=== PATIENT | male | born 1970 | race Caucasian/White ===

== ENCOUNTER → 2021-02-05 | Outpatient (CLI) | payer MEDICARE, OTHER ==
[~2021-02-05] MED LIST: ACYCLOVIR400 MG PO; ALLEGRA ALLERG180 MG PO; AMLODIPINE BESY10 MG PO; ARTHRITIS PAIN100 GM TOP; ASPIRIN81 MG PO; BACLOFEN10 MG PO; CEFDINIR300 MG PO; CELEXA40 MG PO; CLARITIN10 M2 PO; CLARITIN10 MG PO; COPAXONE40 MG/1 ML SQ; DICLOFENAC SOD100 GM EXT; FLONASE 0.05% N16 GM; HUMULIN R100 UNIT/1 INJ; IBUPROFEN800 MG PO; LEVEMIR FL100 UNIT/1 SC; LEVEMIR FL100 UNIT/1 SQ; LIORESAL TAB 1010 MG PO; LIPITOR TAB 1010 MG PO; MELOXICAM7.5 MG PO; MOBIC7.5 MG PO; MONTELUKAST SOD10 MG PO; NEURONTIN 400400 MG PO; NORVASC 5 MG TAB5 MG PO; NUVIGIL250 MG PO; ONDANSETRON ODT8 MG PO; PERCOCET 7.5-31 EACH PO; PIOGLITAZONE HC30 MG PO; PREGABALIN100 MG PO; PROTONIX 40 MG40 M1 PO; QUETIAPINE FUMA50 MG PO; REQUIP1 MG PO; SINGULAIR10 MG PO; SULFAMETHOXAZO1 EACH PO; TOPROL XL50 MG PO; TRAZODONE HCL50 MG PO; VITAMIN B-121000 MCG PO; VITAMIN C 500500 MG PO; VITAMIN D1000 UNIT PO; ZESTRIL 40 MG T40 MG PO; ZESTRIL40 MG PO
[2021-02-05 13:51] LABS: HEMOGLOBIN 12.9 gm/dl (14.0-17.5); RED BLOOD COUNT 4.69 M/UL (4.20-5.50); WHITE BLOOD COUNT 11.2 K/UL (4.5-11.0)
[2021-02-05 14:31] LABS: BUN/CREATININE RATIO 31 (0-10)
== END ==
LOC: MRI 13:09
PROVIDERS: Psychiatry & Neurology Neurology
DX: G35 Multiple sclerosis (principal); R90.82 White matter disease, unspecified
CPT/HCPCS: 36415; 70553; 80053; 85025; A9577

== ENCOUNTER 2021-02-25 15:45 | Observation (INO) | payer MEDICARE ==
[~2021-02-25] VITALS: Ht 185.4 cm; Wt 135.7 kg
[~2021-02-25 15:45] MED LIST changes: -ACYCLOVIR400 MG PO; -AMLODIPINE BESY10 MG PO; -ARTHRITIS PAIN100 GM TOP; -BACLOFEN10 MG PO; -CLARITIN10 M2 PO; -DICLOFENAC SOD100 GM EXT; -FLONASE 0.05% N16 GM; -LEVEMIR FL100 UNIT/1 SC; -LEVEMIR FL100 UNIT/1 SQ; -LIORESAL TAB 1010 MG PO; -MELOXICAM7.5 MG PO; -NUVIGIL250 MG PO; -ONDANSETRON ODT8 MG PO; -PERCOCET 7.5-31 EACH PO; -PIOGLITAZONE HC30 MG PO; -PREGABALIN100 MG PO; -ZESTRIL 40 MG T40 MG PO
[2021-02-25 17:31] LABS: HEMOGLOBIN 12.6 gm/dl (14.0-17.5); RED BLOOD COUNT 4.7 M/UL (4.20-5.50)
[2021-02-25 17:56] LABS: BUN/CREATININE RATIO 27 (0-10)
[2021-02-26] MEDS ORDERED: NUVIGIL250 MG PO (01:29)
[2021-02-26] MEDS ORDERED: PREGABALIN100 MG PO (01:30)
[2021-02-26] MEDS ORDERED: AMLODIPINE BESY10 MG PO (01:31)
[2021-02-26] MEDS ORDERED: MELOXICAM7.5 MG PO (01:32)
[2021-02-26] MEDS ORDERED: CLARITIN10 M2 PO (01:32)
[2021-02-26] MEDS ORDERED: PIOGLITAZONE HC30 MG PO (01:33)
[2021-02-26] MEDS ORDERED: FLONASE 0.05% N16 GM (01:34)
[2021-02-26] MEDS ORDERED: ZESTRIL 40 MG T40 MG PO (01:34)
[2021-02-26] MEDS ORDERED: LEVEMIR FL100 UNIT/1 SQ (01:35)
[2021-02-26] MEDS ORDERED: ONDANSETRON ODT8 MG PO (01:37)
[2021-02-26] MEDS ORDERED: DICLOFENAC SOD100 GM EXT (01:37)
[2021-02-26] MEDS ORDERED: PERCOCET 7.5-31 EACH PO (01:40)
[2021-02-26] MEDS ORDERED: ACYCLOVIR400 MG PO (01:41)
[2021-02-26 02:19] LABS: HEMOGLOBIN 10.8 gm/dl (14.0-17.5)
[2021-02-26 02:21] LABS: RED BLOOD COUNT 4.1 M/UL (4.20-5.50)
[2021-02-26 02:55] LABS: BUN/CREATININE RATIO 28 (0-10)
[2021-02-26] MEDS ORDERED: LIORESAL TAB 1010 MG PO (07:13)
[2021-02-26] MEDS ORDERED: ARTHRITIS PAIN100 GM TOP (09:40)
[2021-02-26] MEDS ORDERED: LEVEMIR FL100 UNIT/1 SC (10:51)
[2021-02-26] MEDS ORDERED: BACLOFEN10 MG PO (19:11)
== END 2021-02-26 12:46 | disposition home or self-care (01) ==
LOC: ER1 15:45 → PROG CARE 18:15 → CDU 18:15 → PROG CARE 02-26 00:24
PROVIDERS: Emergency Medicine; Physician Assistant Medical; ADMIT Internal Medicine
DX: R50.9 Fever, unspecified (principal); R00.0 Tachycardia, unspecified; D72.829 Elevated white blood cell count, unspecified; T45.1X5A Adverse effect of antineoplastic and immunosuppressive drugs, initial encounter; G35 Multiple sclerosis; E11.9 Type 2 diabetes mellitus without complications; I10 Essential (primary) hypertension; E78.5 Hyperlipidemia, unspecified; F41.9 Anxiety disorder, unspecified; G89.29 Other chronic pain; Z20.822 Contact with and (suspected) exposure to COVID-19; Z79.4 Long term (current) use of insulin; Z88.8 Allergy status to other drugs, medicaments and biological substances; Z79.51 Long term (current) use of inhaled steroids; Z79.1 Long term (current) use of non-steroidal anti-inflammatories (NSAID); Z79.899 Other long term (current) drug therapy
CPT/HCPCS: 36415; 71045; 80048; 80053; 82550; 82553; 83735; 84484; 85025; 85027; 93005; 99284; G0378; U0002

== ENCOUNTER → 2021-02-25 | Outpatient (CLI) | payer MEDICARE ==
[~2021-02-25] VITALS: Ht 185.4 cm; Wt 129.3 kg
[2021-02-25 08:01] LABS: BUN/CREATININE RATIO 26 (0-10)
[2021-02-25 08:06] LABS: RED BLOOD COUNT 4.74 M/UL (4.20-5.50); WHITE BLOOD COUNT 9.5 K/UL (4.5-11.0)
[2021-02-26 08:14] LABS: HIV SCREEN 4TH GENERATION WRFX Non Reactive (Non Reactive)
[2021-02-26 12:15] LABS: HBSAG SCREEN Negative (Negative); HEP A AB, IGM Negative (Negative); HEP B CORE AB, IGM Negative (Negative); HEP C VIRUS AB 0.2 (0.0-0.9)
[2021-03-02 09:13] LABS: JCV ANTIBODY Positive (.)
== END ==
LOC: OPSV 06:30
PROVIDERS: Psychiatry & Neurology Neurology
DX: G35 Multiple sclerosis (principal); B19.9 Unspecified viral hepatitis without hepatic coma
CPT/HCPCS: 36415; 80053; 80074; 85025; 87389; 96360; 96361; 96365; 96366; 96367; 96375; J0202; J1200; J2930; J7030; J7070; Q0177

== ENCOUNTER 2021-08-13 19:05 | Emergency (ER) | payer MEDICARE ==
[~2021-08-13 19:05] MED LIST changes: +ACYCLOVIR400 MG PO; +AMLODIPINE BESY10 MG PO; +ARTHRITIS PAIN100 GM TOP; +BACLOFEN10 MG PO; +CLARITIN10 M2 PO; +DICLOFENAC SOD100 GM EXT; +FLONASE 0.05% N16 GM; +LEVEMIR FL100 UNIT/1 SC; +LEVEMIR FL100 UNIT/1 SQ; +LIORESAL TAB 1010 MG PO; +MELOXICAM7.5 MG PO; +NUVIGIL250 MG PO; +ONDANSETRON ODT8 MG PO; +PERCOCET 7.5-31 EACH PO; +PIOGLITAZONE HC30 MG PO; +PREGABALIN100 MG PO; +ZESTRIL 40 MG T40 MG PO
[2021-08-13 20:10] LABS: HEMOGLOBIN 11.4 gm/dl (14.0-17.5); RED BLOOD COUNT 4.72 M/UL (4.20-5.50); WHITE BLOOD COUNT 4.1 K/UL (4.5-11.0)
[2021-08-13 20:35] LABS: BUN/CREATININE RATIO 22 (0-10)
[2021-08-14] MEDS ORDERED: LIDOCAINE1 EAC1 TP (00:13)
[2021-08-14] MEDS ORDERED: IBUPROFEN600 MG PO (00:13)
== END 2021-08-14 02:15 | disposition short-term general hospital (02) ==
LOC: ER1 19:05
PROVIDERS: Emergency Medicine
DX: A41.89 Other specified sepsis (principal); U07.1 COVID-19; R65.21 Severe sepsis with septic shock; J12.82 Pneumonia due to coronavirus disease 2019; J96.91 Respiratory failure, unspecified with hypoxia; E11.9 Type 2 diabetes mellitus without complications
CPT/HCPCS: 31500; 36556; 36600; 51702; 70450; 71045; 80053; 80307; 81001; 82550; 82553; 82803; 83605; 83735; 83874; 84484; 85025; 87040; 87086; 93005; 94002; 96374; 99285; C1751; G0480; J0692; J2250; U0002